=== PATIENT | male | born 1975 | race Caucasian/White ===

== ENCOUNTER 2021-02-16 18:59 | Emergency (ER) | payer OTHER ==
[~2021-02-16] VITALS: Ht 172.7 cm; Wt 88.5 kg
[2021-02-16 18:59] VITALS: BP_SYST 132
[2021-02-16 22:55] VITALS: BP_SYST 132
[2021-02-16] MEDS ORDERED: NAPR-1172 PO (22:57)
[2021-02-16] MEDS ORDERED: NAPR-690 PO (22:59)
== END 2021-02-16 22:55 | disposition home or self-care (01) ==
LOC: SED 18:59
DX: S92.241A Displaced fracture of medial cuneiform of right foot, initial encounter for closed fracture (principal); Z79.899 Other long term (current) drug therapy; W22.8XXA Striking against or struck by other objects, initial encounter; Y93.89 Activity, other specified; Y92.89 Other specified places as the place of occurrence of the external cause; Y99.8 Other external cause status
CPT/HCPCS: 73700-TC; 76376; 99284